=== PATIENT | female | born 1990 | race African-American/Black ===

== ENCOUNTER 2021-11-14 10:35 | Emergency (ER) | payer OTHER ==
[~2021-11-14] VITALS: Ht 154.9 cm; Wt 68.0 kg
== END 2021-11-14 16:33 | disposition home or self-care (01) ==
LOC: ER 10:35
DX: O07.4 Failed attempted termination of pregnancy without complication (principal); O26.891 Other specified pregnancy related conditions, first trimester; Z3A.01 Less than 8 weeks gestation of pregnancy; O26.859 Spotting complicating pregnancy, unspecified trimester; O36.80X0 Pregnancy with inconclusive fetal viability, not applicable or unspecified; O34.10 Maternal care for benign tumor of corpus uteri, unspecified trimester

== ENCOUNTER 2021-11-24 06:05 | Day surgery (SDC) | payer OTHER ==
[~2021-11-24] VITALS: Ht 157.5 cm; Wt 68.0 kg
== END 2021-11-24 15:05 | disposition home or self-care (01) ==
LOC: CIR.AMB 06:05
PROVIDERS: ATTEND Specialist
DX: O02.1 Missed abortion (principal); J45.909 Unspecified asthma, uncomplicated; D25.9 Leiomyoma of uterus, unspecified

== ENCOUNTER 2022-04-18 07:00 | Inpatient (IN) | payer OTHER | END 2022-04-22 09:06 | disposition home or self-care (01) | DRG 743 | LOC: O/R 04-20 06:25 → OB/GYN 04-20 07:00 | PROVIDERS: ADMIT Specialist; ATTEND Specialist | PROC: 0UB90ZZ Excision of Uterus, Open Approach (ICD-10-PCS; principal; 2022-04-20 10:00) | DX: D25.2 Subserosal leiomyoma of uterus (principal); Z20.822 Contact with and (suspected) exposure to COVID-19 ==

== ENCOUNTER 2022-09-26 09:12 | Outpatient (CLI) | payer OTHER | END 2022-09-26 10:29 | disposition home or self-care (01) | LOC: SONOGRAMA 09:12 | PROVIDERS: ATTEND Specialist | DX: O03.80 Unspecified complication following complete or unspecified spontaneous abortion (principal) ==

== ENCOUNTER 2022-09-28 05:47 | Day surgery (SDC) | payer OTHER | END 2022-09-28 11:55 | disposition home or self-care (01) | LOC: CIR.AMB 05:47 → CIR LITO 13:38 → CIR.AMB 13:41 | PROVIDERS: ATTEND Specialist | DX: O02.1 Missed abortion (principal); O72.2 Delayed and secondary postpartum hemorrhage; E83.51 Hypocalcemia; D68.9 Coagulation defect, unspecified; Z20.822 Contact with and (suspected) exposure to COVID-19 ==

== ENCOUNTER 2024-07-24 08:15 | Inpatient (IN) | payer OTHER ==
[~2024-07-24] VITALS: Ht 152.4 cm; Wt 71.7 kg
[2024-07-24 09:09] VITALS: BP 116/79
[2024-07-24 09:12] VITALS: BP 116/84
[2024-07-24 10:37] LABS: HEMATOCRIT 34.7 % (36.0-45.00); HEMOGLOBIN 11.1 g/dL (12.0-15.00); MEAN CELL VOLUME 76.1 fL (80.00-100.00); MEAN CORPUSCULAR HEMOGLOBIN 24.4 pg (27.00-32.0); PLATELET COUNT 278 K/uL (150-450); RED BLOOD COUNT 4.56 M/uL (4.00-6.00); RED CELL DISTRIBUTION WIDTH 17.7 % (11.5-14.5)
[2024-07-24 10:37] LABS: PH,URINE 7.5 (5.0-8.0); URINE APPEARANCE Clear; URINE BILIRRUBIN Negative (NEGATIVE); URINE BLOOD Negative; URINE COLOR Yellow; URINE GLUCOSE Negative (NEGATIVE); URINE KETONE Negative (NEGATIVE); URINE LEUKOCYTE Negative; URINE NITRATE Negative; URINE PROTEIN Negative (NEGATIVE); URINE UROBILINOGEN 0.2 E.U./dl
[2024-07-24 10:38] LABS: URINE BACTERIA 1851.6 uL (0.0-1933); URINE EPITHELIAL CELLS 8.3 uL (0.0-38.8); URINE RBC 2.2 uL (0.0-20.8); URINE WBC 46.8 uL (0.0-23.2)
[2024-07-24 11:10] LABS: INR 1.13; PARTIAL THROMBOPLASTIN TIME 30.6 SECONDS (22.0-34.0); PROTHROMBIN TIME 12.2 SECONDS (9.0-11.5)
[2024-07-24 11:30] LABS: ALBUMIN 3.8 gm/dL (3.4-5.0); BILIRUBIN TOTAL 0.52 mg/dL (0.3-1.2); CALCIUM 9.4 mg/dL (8.5-10.1); CREATININE SERUM 0.72 mg/dL (0.55-1.02); GFR 94.48; GLOBULINA 3.6 G/DL (2.4-3.5); POTASSIUM 4.35 mEq/L (3.5-5.1); TOTAL PROTEIN 7.4 gm/dL (6.4-8.2)
[2024-07-31] MEDS ORDERED: CEFAZOLIN SODIUM 1,000 MG VIAL ONE ×2 (07:05→13:23)
[2024-07-31] MEDS ORDERED: POVIDONE-IODINE 118 ML BOTT TOP ONE (07:52)
[2024-07-31] MEDS ORDERED: SUGAMMADEX SODIUM 200 MG/2 ML VIAL IV ONE (09:21)
[2024-07-31] MEDS ORDERED: MEPERIDINE HCL/PF 50 MG/ML VIAL IM PRN (10:15)
[2024-07-31] MEDS ORDERED: PROMETHAZINE HCL 50 MG/ML AMPUL IM PRN (10:15)
[2024-07-31] MEDS ORDERED: RINGERS SOLUTION,LACTATED 1,000 ML IV SCH (10:15)
[2024-07-31] MEDS ORDERED: MORPHINE SULFATE 4 MG/ML VIAL IV ONE ×2 (10:50→11:20)
[2024-07-31] MEDS ORDERED: PROMETHAZINE HCL 50 MG/ML AMPUL IM ONE (13:23)
[2024-07-31] MEDS ORDERED: CEFAZOLIN SODIUM 1,000 MG VIAL IV SCH (14:00)
[2024-07-31 14:43] VITALS: BP 116/79
[2024-07-31 17:01] VITALS: BP 115/77
[2024-07-31 23:57] VITALS: BP 125/79
[2024-08-01 01:48] LABS: HEMATOCRIT 32.1 % (36.0-45.00); HEMOGLOBIN 10.4 g/dL (12.0-15.00); MEAN CELL VOLUME 76.4 fL (80.00-100.00); MEAN CORPUSCULAR HEMOGLOBIN 24.8 pg (27.00-32.0); MEAN CORPUSCULAR HGB CONC 32.5 g/dl (32.0-36.0); PLATELET COUNT 279 K/uL (150-450); RED BLOOD COUNT 4.21 M/uL (4.00-6.00); RED CELL DISTRIBUTION WIDTH 17.9 % (11.5-14.5)
[2024-08-01 04:30] VITALS: BP 122/82
[2024-08-01] MEDS ORDERED: IBUprofen 800 MG TABLET PO PRN (08:00)
[2024-08-01] MEDS ORDERED: ACETAMINOPHEN 500 MG GEL..CAP PO PRN (08:00)
[2024-08-01 09:32] VITALS: BP 114/81
[2024-08-01 15:29] VITALS: BP 113/72
[2024-08-02] VITALS: BP 107/71
[2024-08-02 08:35] VITALS: BP 118/78
[2024-08-02] MEDS ORDERED: IBUPROFEN800 MG PO (10:18)
== END 2024-08-02 11:44 | disposition home or self-care (01) | DRG 743 ==
LOC: O/R 07-31 05:08 → OB/GYN 07-31 07:00
PROVIDERS: ADMIT Specialist; ATTEND Specialist
PROC: 0UT90ZZ Resection of Uterus, Open Approach (ICD-10-PCS; principal; 2024-07-31 07:00)
DX: D25.1 Intramural leiomyoma of uterus (principal)